=== PATIENT | female | born 1945 | race Caucasian/White ===

== ENCOUNTER 2017-07-18 10:31 | Inpatient (IN) | payer OTHER ==
[~2017-07-18] VITALS: Ht 177.8 cm; Wt 83.7 kg
[~2017-07-18 10:31] MED LIST: CRESTOR40 MG PO; DIOVAN HCT 81 TABLET PO; JANUMET XR 50-1 EACH PO; KEFLEX500 MG PO; KOMBIGLYZE XR1 EAC1 PO; OMEPRAZOLE40 M1 PO; PRISTIQ50 MG PO
[2017-10-05] MEDS ORDERED: KOMBIGLYZE XR1 EAC1 PO (08:59)
[2017-10-05] MEDS ORDERED: TRADJENTA5 MG PO (09:00)
[2017-10-05] MEDS ORDERED: SYNJARDY XR 101 EACH PO (09:00)
[2017-10-05] MEDS ORDERED: BYSTOLIC10 MG PO (09:00)
[2017-10-05] MEDS ORDERED: ZYRTEC10 M3 PO (09:01)
[2017-10-05] MEDS ORDERED: IRON325 M1 PO (09:04)
[2017-10-09 12:36] VITALS: BP 140/90
[2017-10-09 18:42] VITALS: BP 186/90
[2017-10-09 19:50] VITALS: BP 156/75
[2017-10-10 01:13] VITALS: BP 138/71
[2017-10-10 04:12] VITALS: BP 116/60
[2017-10-10 05:45] LABS: HEMATOCRIT 37.3 % (36.0-46.0); MCV 99.2 FL (83-99)
[2017-10-10 05:46] LABS: HEMOGLOBIN 12.2 G/DL (11.9-15.5)
[2017-10-10 06:10] LABS: CHLORIDE 102 MEQ/L (99-109); CREATININE 0.7 MG/DL (0.6-1.3); GFR ESTIMATE (CALCULATED) > 59 mL/min/; GLUCOSE 183 mg/dL (70-99); POTASSIUM 4.6 MEQ/L (3.7-5.4); SODIUM 138 MEQ/L (136-147); UREA NITROGEN (BUN) 10 mg/dL (9-23)
[2017-10-10 07:15] VITALS: BP 114/68
[2017-10-10] MEDS ORDERED: HYDROCODON-ACE1 EAC7 PO (10:18)
[2017-10-10] MEDS ORDERED: SENNA PLUS TAB1 EACH PO (10:18)
[2017-10-10] MEDS ORDERED: ELIQUIS2.5 MG PO (10:21)
[2017-10-10 12:10] VITALS: BP 122/77
[2017-10-10 15:45] VITALS: BP 122/60
[2017-10-10 23:36] VITALS: BP 121/68
[2017-10-11 06:51] LABS: HEMATOCRIT 35.5 % (36.0-46.0); MCV 96.2 FL (83-99)
[2017-10-11 08:02] VITALS: BP 126/69
[2017-10-11] MEDS ORDERED: METOCLOPRAMIDE10 MG PO (09:16)
== END 2017-10-11 12:42 | disposition home or self-care (01) | DRG 470 ==
LOC: 2SOUTH 10:31 → ENRESERV 10-08 22:04 → 2SOUTH 10-09 11:49 → ENRESERV 10-09 17:37 → 3EAST 10-09 18:23 → 2SOUTH 02-12 10:06
PROVIDERS: Orthopaedic Surgery
PROC: 0SRD0J9 Replacement of Left Knee Joint with Synthetic Substitute, Cemented, Open Approach (ICD-10-PCS; principal; 2017-10-09)
DX: M17.12 Unilateral primary osteoarthritis, left knee (principal); R06.89 Other abnormalities of breathing; I10 Essential (primary) hypertension; E11.9 Type 2 diabetes mellitus without complications; K21.9 Gastro-esophageal reflux disease without esophagitis; F32.9 Major depressive disorder, single episode, unspecified; Z90.710 Acquired absence of both cervix and uterus; Z79.84 Long term (current) use of oral hypoglycemic drugs
CPT/HCPCS: 80048; 82948; 85014; 85018; C1713; J0131; J0690; J1815; J1885; J2250; J2405; J2795; J3010; J7030; J7050